=== PATIENT | female | born 1955 | race Caucasian/White ===

== ENCOUNTER 2020-03-12 07:56 | Outpatient (CLI) | payer OTHER | END 2020-03-12 07:57 | disposition home or self-care (01) | LOC: SONOGRAMA 07:56 | PROVIDERS: ATTEND Pathology Anatomic Pathology | DX: E03.8 Other specified hypothyroidism (principal) ==

== ENCOUNTER 2022-01-09 08:31 | Outpatient (CLI) | payer OTHER | END 2022-01-09 08:34 | disposition home or self-care (01) | LOC: SONOGRAMA 08:31 | PROVIDERS: ATTEND Pathology Anatomic Pathology & Clinical Pathology | DX: E03.9 Hypothyroidism, unspecified (principal) ==